=== PATIENT | male | born 1960 | race Caucasian/White ===

== ENCOUNTER 2016-12-18 07:45 | Emergency (ER) | payer BC, SELFPAY ==
[~2016-12-18] VITALS: Ht 170.2 cm; Wt 81.6 kg
[2016-12-18] MEDS ORDERED: NORC1TAB4 PO (08:09)
[2016-12-18] MEDS ORDERED: NS 1,000 ML IV SCH (08:17)
[2016-12-18] MEDS ORDERED: MORPHINE 4 MG/ML 1ML SYRINGE IV PRN (08:30)
[2016-12-18] MEDS ORDERED: ONDANSETRON 4MG/2ML VIAL (J2405) IV ONE (08:30)
[2016-12-18] MEDS ORDERED: KETOROLAC 30 MG/ML VIAL (J1885) IV ONE ×2 (08:30→10:15)
[2016-12-18 08:33] LABS: BASO # 0.1 K/mm3 (0.0-0.2); BASO % 0.5 % (0.0-1.0); EOS # 0.2 K/mm3 (0.0-0.50); EOS % 1.5 % (0.0-3.0); LARGE UNSTAINED CELL # 0.1 K/mm3 (0.0-0.4); LARGE UNSTAINED CELL % 0.5 % (0.0-4.0); LYMPH # 1.7 K/mm3 (1.5-4.5); LYMPH % 11.6 % (24.0-44.0); MEAN CORPUSCULAR HEMOGLOBIN 31.9 pg (27.0-33.0); MEAN CORPUSCULAR HGB CONC 34.1 g/dl (32.0-36.5); MEAN CORPUSCULAR VOLUME 93.4 fl (80.0-96.0); MONO # 0.4 K/mm3 (0.0-0.8); MONO % 3.2 % (0.0-5.0); NEUTROPHILS # 11.3 K/mm3 (1.8-7.7); NEUTROPHILS % 82.8 % (36.0-66.0); PLATELET COUNT, AUTOMATED 322 k/mm3 (150-450); RED CELL DISTRIBUTION WIDTH 12.3 % (11.5-14.5); WHITE BLOOD COUNT 13.7 K/mm3 (4.0-10.0)
[2016-12-18 08:54] LABS: ALBUMIN 4.2 GM/DL (3.2-5.2); ALBUMIN/GLOBULIN RATIO 1.08 (1.00-1.93); ALKALINE PHOSPHATASE 87 U/L (45-117); ALT/SGPT 32 U/L (12-78); ANION GAP 4 MEQ/L (8-16); AST/SGOT 19 U/L (15-37); BILIRUBIN,DIRECT < 0.1 MG/DL (0.0-0.2); BILIRUBIN,TOTAL 0.5 MG/DL (0.2-1.0); BLOOD UREA NITROGEN 11 MG/DL (7-18); CALCIUM LEVEL 9.2 MG/DL (8.5-10.1); CARBON DIOXIDE LEVEL 30 MEQ/L (21-32); CHLORIDE LEVEL 106 MEQ/L (98-107); CREATININE FOR GFR 1.29 MG/DL (0.70-1.30); GLOMERULAR FILTRATION RATE > 60.0 (>56); GLUCOSE, FASTING 121 MG/DL (70-105); POTASSIUM SERUM 4.1 MEQ/L (3.5-5.1); SODIUM LEVEL 140 MEQ/L (136-145); TOTAL PROTEIN 8.1 GM/DL (6.4-8.2)
--- NOTE | 2016-12-18 09:45 | REP ---
CT ABDOMEN AND PELVIS WITHOUT CONTRAST: CT abdomen and pelvis is performed without oral or IV contrast. The visualized lung bases demonstrate fibrotic changes. The liver is grossly unremarkable. The spleen demonstrates a 9 mm hypodensity which is nonspecific and may represent a hemangioma. The adrenals and pancreas are unremarkable. There is moderate right hydroureteronephrosis caused by a 4 mm stone at the right ureterovesical junction. A tiny subcentimeter stone is seen in the mid to lower left renal collecting system. There is no left hydronephrosis. There is mild atherosclerotic calcification of the abdominal aorta without aneurysm. There is no adenopathy, free air or free fluid. No bowel wall thickening is seen. No pelvic mass is seen. There are small bilateral unguinal hernias containing fat. IMPRESSION: There is a 4 mm stone at the right ureterovesical junction causing moderate right hydroureteronephrosis. No other acute finding. There is a 9 mm hypodensity in the spleen, which is nonspecific and may represent hemangioma. Signed by Maximo Massey MD 12/20/2016 06:53 P
[2016-12-18] MEDS ORDERED: HYDROmorphone HCL 1 MG/ML SYRINGE (J1170) IV PRN (10:30)
--- NOTE | 2016-12-18 11:38 | ECGEPIP ---
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
[2016-12-18] MEDS ORDERED: FLOM5CAP PO (12:36)
[2016-12-18] MEDS ORDERED: OXYC1TAB23 PO (12:37)
[2016-12-18 12:53] VITALS: BP 142/79
--- NOTE | 2016-12-23 15:17 | ED PDOC ---
Post-Departure Follow-Up dr hernandez faxed formal report of ct abd/p for fu Sakina Frank MD Dec 23, 2016 15:17
== END 2016-12-18 13:06 | disposition home or self-care (01) ==
LOC: M ED 08:28
DX: N20.1 Calculus of ureter (principal)
CPT/HCPCS: 74176; 80048; 80076; 81001; 83690; 85025; 87086; 93005; 93041; 96361; 96374; 96375; 96376; 99285; J1170; J1885; J2405

== ENCOUNTER → 2019-03-17 | Outpatient (CLI) | payer BC ==
[~2019-03-17] MED LIST: FLOM0.4C39 PO; NORC1TAB7 PO; OXYC1TAB23 PO
--- NOTE | 2019-03-17 18:50 | REP ---
RIGHT TIBIA-FIBULA: 03/17/2019. Clinical history: Right lower leg mass, rule out bone cyst. Technologist note indicates mid desouza pain. Findings: No prior study. The two views show no soft tissue mass or calcification. There is a solid smooth periosteal reaction along the lateral aspect of the mid shaft and proximal shaft of the tibia. There is no subjacent cortical disruption, soft-tissue calcification, bony expansion or focal bone lesion, soft tissue calcification or other acute finding. Impression: 1. No soft tissue mass with calcification, pretibial soft tissue swelling, bony destructive lesion or expansile bone lesion noted. 2. There is mild smooth periosteal reaction along the lateral aspect of the mid shaft and proximal shaft of the tibia. No other significant finding. This is a nonaggressive periosteal reaction appearance. Routine followup with MRI may be helpful for evaluation of soft tissue masses in the calf. Electronically Signed by John Olivares MD 03/17/2019 07:47 P
== END ==
LOC: M RAD 17:46
PROVIDERS: ATTEND Physician Assistant Medical
DX: R22.41 Localized swelling, mass and lump, right lower limb (principal)

== ENCOUNTER → 2019-04-08 | Outpatient (CLI) | payer BC ==
[2019-04-08 10:48] LABS: HEMATOCRIT 48.2 % (42.0-52.0); HEMOGLOBIN 16.5 g/dl (13.5-17.5); MEAN CORPUSCULAR HGB CONC 34.2 g/dl (32.0-36.5); MEAN CORPUSCULAR VOLUME 99.2 fl (80.0-96.0); PLATELET COUNT, AUTOMATED 273 10^3/uL (150-450); RED BLOOD COUNT 4.86 10^6/uL (4.30-6.10); WHITE BLOOD COUNT 6.6 10^3/uL (4.0-10.0)
--- NOTE | 2019-04-08 10:51 | ECGEPIP ---
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
[2019-04-08 11:14] LABS: HEMOGLOBIN A1c 5.2 %
[2019-04-08 11:26] LABS: ALBUMIN 3.6 GM/DL (3.2-5.2); ALT/SGPT 38 U/L (12-78); BILIRUBIN,TOTAL 0.4 MG/DL (0.2-1.0); BLOOD UREA NITROGEN 17 MG/DL (7-18); CARBON DIOXIDE LEVEL 26 MEQ/L (21-32); CHLORIDE LEVEL 108 MEQ/L (98-107); CHOLESTEROL LEVEL 258 MG/DL (<200); CREATININE FOR GFR 1.15 MG/DL (0.70-1.30); GLOMERULAR FILTRATION RATE > 60.0 (>56); GLUCOSE, FASTING 95 MG/DL (70-100); HDL CHOLESTEROL 55 MG/DL (>40); LDL CHOLESTEROL 163 MG/DL (<100); NON-HDL-C 203 MG/DL; POTASSIUM SERUM 4.8 MEQ/L (3.5-5.1); PROSTATIC SPECIFIC AG MONITOR 1.89 NG/ML (< 4.00); SODIUM LEVEL 141 MEQ/L (136-145); TESTOSTERONE 526 NG/DL (241-827); TOTAL PROTEIN 6.5 GM/DL (6.4-8.2); TRIGLYCERIDES LEVEL 202 MG/DL (<150)
--- NOTE | 2019-04-08 16:58 | REP ---
PA and lateral chest: Comparison is 01/13/2013. The lung maldonado are clear. The cardiac size is normal. The bam, mediastinum, and skeletal structures are unremarkable. There is a chronic curvilinear parenchymal scar inferiorly in the right lung, unchanged. Impression: Negative PA and lateral chest. There is no interval change. Electronically Signed by Maximo Ceja MD 04/08/2019 04:49 P
== END ==
LOC: M LAB 09:41
PROVIDERS: ATTEND Family Medicine
DX: I10 Essential (primary) hypertension (principal); R53.83 Other fatigue; E03.9 Hypothyroidism, unspecified

== ENCOUNTER → 2022-11-15 | Outpatient (CLI) | payer BC | LOC: M WUC 13:21 | PROVIDERS: ATTEND Student in an Organized Health Care Education/Training Program | DX: M25.511 Pain in right shoulder (principal) ==

== ENCOUNTER → 2022-12-10 | Outpatient (CLI) | payer BC | LOC: M OUTALCOH 08:16 | PROVIDERS: ATTEND Psychiatry & Neurology Psychiatry | DX: Z13.89 Encounter for screening for other disorder (principal) ==

== ENCOUNTER → 2022-12-19 | Outpatient (RCR) | payer BC | LOC: M OUTALCOH 09:50 | PROVIDERS: ATTEND Psychiatry & Neurology Psychiatry | DX: F10.10 Alcohol abuse, uncomplicated (principal) ==

== ENCOUNTER 2023-01-17 16:00 | Outpatient (RCR) | payer BC | END 2023-01-18 | LOC: M OUTALCOH 16:00 | PROVIDERS: ATTEND Psychiatry & Neurology Psychiatry | DX: F10.10 Alcohol abuse, uncomplicated (principal) ==

== ENCOUNTER 2023-02-13 09:30 | Outpatient (RCR) | payer BC | END 2023-02-18 | LOC: M OUTALCOH 09:30 | PROVIDERS: ATTEND Psychiatry & Neurology Psychiatry | DX: F10.10 Alcohol abuse, uncomplicated (principal) ==